=== PATIENT | male | born 1930 | race Caucasian/White ===

== ENCOUNTER 2018-08-21 14:58 | Emergency (ER) | payer OTHER, MEDICARE ==
[~2018-08-21] VITALS: Ht 177.8 cm; Wt 70.0 kg
[2018-08-21 15:29] LABS: GFR > 60 ML/MIN (>=60 (CALC)); GFR FOR AFR.AMER. > 60 ML/MIN (>=60 (CALC))
[2018-08-21 15:30] LABS: HEMATOCRIT 39.5 % (39.0-50.0); HEMOGLOBIN 12.8 g/dl (14.0-18.0); IMMATURE GRANULOCYTES 1.6 % (0.0-5.0); MEAN CELL VOLUME 94.5 fL CALC (80.0-100.0); MEAN CORPUSCULAR HGB 30.6 pG CALC (26.0-32.0); MEAN CORPUSCULAR HGB CONC 32.4 g/L CALC (32.0-36.0); NEUT# 8.6 thou/uL (1.82-7.42); RED BLOOD COUNT 4.18 mill/uL (4.70-6.10)
[2018-08-21 18:56] VITALS: BP 168/83
== END 2018-08-21 18:57 | DRG 914 ==
LOC: ED 14:58
PROVIDERS: Emergency Medicine
DX: S85.901A Unspecified injury of unspecified blood vessel at lower leg level, right leg, initial encounter (principal); S82.51XA Displaced fracture of medial malleolus of right tibia, initial encounter for closed fracture; S41.112A Laceration without foreign body of left upper arm, initial encounter; S41.111A Laceration without foreign body of right upper arm, initial encounter; S20.319A Abrasion of unspecified front wall of thorax, initial encounter; S60.311A Abrasion of right thumb, initial encounter; V28.4XXA Motorcycle driver injured in noncollision transport accident in traffic accident, initial encounter
CPT/HCPCS: Q9967